=== PATIENT | male | born 1960 | race African-American/Black ===

== ENCOUNTER 2018-11-03 11:27 | Inpatient (IN) | payer OTHER ==
[2018-11-03 11:38] VITALS: BMI 21.7
--- NOTE | 2018-11-03 13:03 | HP ---
CIWA Score Nausea/Vomitin Muscle Tremors: 2 Anxiety: 2 Agitation: 2 Paroxysmal Sweats: 1-Minimal Palms Moist Orientation: 0-Oriented Tacttile Disturbances: 1-Very Mild Itch/Numbness Auditory Disturbances: 1-Very Mild Visual Disturbances: 0-None Headache: 2-Mild CIWA-Ar Total Score: 13 - Admission Criteria [facility] Guidelines: Admission for Medically Managed Detox: Requires at least one of the followin. CIWA greater than 12 2. Seizures within the past 24 hours 3. Delirium tremens within the past 24 hours 4. Hallucinations within the past 24 hours 5. Acute intervention needed for co occurring medical disorder 6. Acute intervention needed for co occurring psychiatric disorder 7. Severe withdrawal that cannot be handled at a lower level of care (continued vomiting, continued diarrhea, abnormal vital signs) requiring intravenous medication and/or fluids 8. Patient presents the following: CIWA greater than 12 Admission Criteria Met: Admission criteria met Admission ROS BHS - HPI Chief Complaint: i need help to stop drinking alcohol and cocaine Allergies/Adverse Reactions: Allergies Allergy/AdvReac Type Severity Reaction Status Date / Time Penicillins Allergy Mild Hives Verified 11/03/18 12:12 tomato Allergy Unknown Hives Verified 11/03/18 12:12 chocolate Allergy Severe Rash Uncoded 11/03/18 12:12 History of Present Illness: this 58 years old male with alcohol and cocaine dependence,seeking detox, withdrawal symptom,last detox 09/20/16 to 09/26/16,[facility] hiv positive 12/1989 weight loss nicotine dependence multiple admissions in the past but keep relapsing bipolar disorder,anxiety,depression plan to go to rehab after detox multiple admissions for pcp pneumonia - Ebola screening Have you traveled outside of the country in the last 21 days: No Have you been sick,other than usual withdrawal symptoms: No - Review of Systems Constitutional: Loss of Appetite, Malaise, Night Sweats, Changes in sleep, Weakness, Unintentional Wgt. Loss EENT: reports: Nose Congestion Respiratory: reports: No Symptoms reported Cardiac: reports: No Symptoms Reported GI: reports: Nausea, Poor Appetite, Abdominal cramping : reports: No Symptoms Reported Musculoskeletal: reports: Back Pain, Muscle Pain Integumentary: reports: Dryness Neuro: reports: Headache, Tremors Endocrine: reports: No Symptoms Reported Hematology: reports: No Symptoms Reported, Other (hiv) Psychiatric: reports: No Sypmtoms Reported, Judgement Intact, Mood/Affect Appropiate, Orientated x3, other (bipolar disorder) Other Systems: Reviewed and Negative Patient History - Patient Medical History Hx Anemia: Yes (no med) Hx Asthma: No Hx Chronic Obstructive Pulmonary Disease (COPD): No Hx Cancer: No Hx Cardiac Disorders: No Hx Congestive Heart Failure: No Hx Hypertension: No Hx Hypercholesterolemia: Yes (no med) Hx Pacemaker: No HX Cerebrovascular Accident: No Hx Seizures: No Hx Diabetes: No Hx Gastrointestinal Disorders: No Hx Liver Disease: No Hx Genitourinary Disorders: No Hx Sexually Transmitted Disorders: No Hx Renal Disease (ESRD): No Hx Thyroid Disease: No Hx Human Immunodeficiency Virus (HIV): Yes (since 12/1989 non compliance) Hx Hepatitis C: No Hx Depression: Yes Hx Suicide Attempt: No Hx Bipolar Disorder: Yes Hx Schizophrenia: No Other Medical History: no suicidal,no homicidal - Patient Surgical History Past Surgical History: No Hx Neurologic Surgery: No Hx Cataract Extraction: No Hx Cardiac Surgery: No Hx Lung Surgery: No Hx Breast Surgery: No Hx Breast Biopsy: No Hx Abdominal Surgery: No Hx Appendectomy: No Hx Cholecystectomy: No Hx Genitourinary Surgery: No Hx Section: No Hx Orthopedic Surgery: No Anesthesia Reaction: No - PPD History Previous Implant?: Yes Documented Results: Positive w/o proof Implanted On Prior [facility] Admission?: No PPD to be Administered?: No - Smoking Cessation Smoking history: Current every day smoker Have you smoked in the past 12 months: Yes Aproximately how many cigarettes per day: 20 Hx Chewing Tobacco Use: No Initiated information on smoking cessation: Yes 'Breaking Loose' booklet given: 11/03/18 - Substance & Tx. History Hx Alcohol Use: Yes Hx Substance Use: Yes Substance Use Type: Alcohol, Cocaine Hx Substance Use Treatment: Yes ([facility] 09/23/16 to 09/26/16) - Substances Abused Crack Route: Smoking Frequency: Daily Amount used: $200 Age of first use: 33 Date of Last Use: 11/02/18 Alcohol-beer Route: Oral Frequency: Daily Amount used: 2-6 pkls. Age of first use: 22 Date of Last Use: 11/03/18 Family Disease History - Family Disease History Family Disease History: Other: Mother (alcohol,) Admission Physical Exam BHS - Vital Signs Vital Signs: Vital Signs - 24 hr 11/03/18 11:28 Temperature 97.1 F L Pulse Rate 84 Respiratory 20 Rate Blood Pressure 122/70 - Physical General Appearance: Yes: Moderate Distress, Tremorous, Irritable, Sweating, Anxious HEENTM: Yes: Normal ENT Inspection, JUTSICE, Pharynx Normal Respiratory: Yes: Lungs Clear, Normal Breath Sounds, No Respiratory Distress Neck: Yes: Within Normal Limits, Supple, Trachea in good position Breast: Yes: Within Normal Limits Cardiology: Yes: Within Normal Limits, Regular Rhythm, Regular Rate, S1, S2 Abdominal: Yes: Within Normal Limits, Normal Bowel Sounds, Non Tender, Flat, Soft Genitourinary: Yes: Within Normal Limits Back: Yes: Muscle Spasm Musculoskeletal: Yes: full range of Motion, Back pain, Muscle Pain Extremities: Yes: Tremors Neurological: Yes: cell liner II-XII NML intact, Fully Oriented, Alert, Motor Strength 5/5 Integumentary: Yes: Dry Lymphatic: Yes: Within Normal Limits - Diagnostic (1) Alcohol dependence with uncomplicated withdrawal Current Visit: No Status: Acute (2) Acquired immune deficiency syndrome (AIDS) Current Visit: No Status: Active (3) Bipolar disorder Current Visit: No Status: Acute (4) Cocaine dependence Current Visit: No Status: Acute (5) Nicotine dependence Current Visit: No Status: Acute (6) Peripheral neuropathy Current Visit: No Status: Acute Qualifiers: Peripheral neuropathy type: polyneuropathy, other Qualified Code(s): G62.89 - Other specified polyneuropathies (7) Syncope Current Visit: No Status: Acute (8) Weight loss Current Visit: No Status: Acute Cleared for Admission [facility] - Detox or Rehab [facility] Level of Care: Medically Managed Detox Regimen/Protocol: Librium [facility] Breath Alcohol Content Breath Alcohol Content: 0.087 Urine Drug Screen - Results Drug Screen Negative: No Urine Drug Screen Results: JEISON-Cocaine
[2018-11-03] MEDS ORDERED: hydrOXYzine PAMOATE 25 MG CAPSULE (FP) PO PRN (13:12)
[2018-11-03] MEDS ORDERED: ACETAMINOPHEN 325 MG TABLET (FP) PO PRN (13:12)
[2018-11-03] MEDS ORDERED: MAG HYDROX/AL HYDROX/SIMETH 30 ML UNIT-DOSE CUP PO PRN (13:12)
[2018-11-03] MEDS ORDERED: P-EPHED 60MG/TRIPROLIDI 2.5MG TABLET PO PRN (13:12)
[2018-11-03] MEDS ORDERED: MENTHOL/PHENOL 1 EACH UD MM PRN (13:12)
[2018-11-03] MEDS ORDERED: guaiFENesin/D-METHORPHAN HB 10 ML UNIT-DOSE CUPS PO PRN (13:12)
[2018-11-03] MEDS ORDERED: MAGNESIUM CITRATE 300 ML BOTTLE PO PRN (13:12)
[2018-11-03] MEDS ORDERED: MAGNESIUM HYDROX 2400MG/30ML ORAL SUSPENSION 30 ML CUP PO PRN (13:12)
[2018-11-03] MEDS ORDERED: diphenhydrAMINE HCL 25 MG CAPSULE (FP) PO PRN (13:18)
[2018-11-03] MEDS: chlordiazePOXIDE HCL 25 MG CAPSULE PO PRN (14:06)
[2018-11-03] MEDS ORDERED: ZIDOVUDINE 300 MG PO SCH (14:30)
[2018-11-03] MEDS: IBUPROFEN 400 MG TABLET (FP) PO PRN (15:58)
[2018-11-03] MEDS: chlordiazePOXIDE HCL 25 MG CAPSULE PO SCH ×2 (17:21→22:18)
[2018-11-03] MEDS: THIAMINE HCL 100 MG TABLET (FP) PO SCH (22:18)
[2018-11-03] MEDS: AMMONIUM LACTATE 12% LOTION 225 GM BOTTLE TP SCH (22:19)
[2018-11-03] MEDS: ZIDOVUDINE 300 MG PO SCH (22:19)
[2018-11-04] MEDS: chlordiazePOXIDE HCL 25 MG CAPSULE PO SCH ×4 (05:37→22:20)
--- NOTE | 2018-11-04 10:05 | CONSULT ---
[facility] Psychiatric Consult - Data Date of interview: 11/04/18 ([facility]) Admission source: [facility] Identifying data: Patient is approached by typewriter operator automatic, at bedside, for the psychiatric interview. Mr Marin declines. " I don't need to talk to psychiatrists ". Nursing staff is made aware.
[2018-11-04] MEDS: DOLUTEGRAVIR SODIUM 50 MG TABLET (NON-FORMULARY) PO SCH (10:31)
[2018-11-04] MEDS: DARUNAVIR 800 MG/COBICISTAT 150MG TABLET PO SCH (10:31)
[2018-11-04] MEDS: PRENATAL VITAMINS W/ FOLIC ACID TABLET (FP) PO SCH (10:31)
[2018-11-04] MEDS: ZIDOVUDINE 300 MG PO SCH ×2 (10:32→22:23)
[2018-11-04] MEDS: AMMONIUM LACTATE 12% LOTION 225 GM BOTTLE TP SCH ×2 (10:38→22:23)
[2018-11-04 10:46] LABS: HEMATOCRIT 34.3 % (35.4-49); MCH 34.2 pg (25.7-33.7); MCHC 32.2 g/dl (32.0-35.9); MEAN CELL VOLUME 106.3 fl (80-96); MEAN PLT VOLUME 7.4 fl (7.5-11.1); PLATELET COUNT 228 K/MM3 (134-434); RBC 3.23 M/mm3 (4.00-5.60); RDW 14.2 % (11.9-15.9); WHITE BLOOD COUNT 5.4 K/mm3 (4.0-10.0)
[2018-11-04 10:56] LABS: ALBUMIN 3.4 g/dl (3.4-5.0); ALK PHOS 69 U/L (45-117); ANION GAP 6 MMOL/L (8-16); BILIRUBIN,TOTAL 0.2 mg/dL (0.2-1); BLOOD UREA NITROGEN 12 mg/dL (7-18); CALCIUM 8.4 mg/dL (8.5-10.1); CHLORIDE 106 mmol/L (98-107); CO2 27 mmol/L (21-32); GLUCOSE,RANDOM 97 mg/dL (74-106); POTASSIUM 3.9 mmol/L (3.5-5.1); SGOT/AST 31 U/L (15-37); SGPT/ALT 21 U/L (13-61); SODIUM 139 mmol/L (136-145); TOT PROT 8.1 g/dl (6.4-8.2)
[2018-11-04 11:39] LABS: RPR REACTIVE 1:1 (NONREACTIVE)
[2018-11-04 11:40] LABS: TREPONEMA ANTIBODY PREVIOUSLY REACTIVE (NONREACTIVE)
--- NOTE | 2018-11-04 12:28 | PN ---
S CIWA - CIWA Score Nausea/Vomitin Muscle Tremors: 2 Anxiety: 3 Agitation: 0-Normal Activity Paroxysmal Sweats: 3 Orientation: 0-Oriented Tacttile Disturbances: 0-None Auditory Disturbances: 0-None Visual Disturbances: 0-None Headache: 0-None Present CIWA-Ar Total Score: 10 BHS Progress Note (SOAP) Subjective: PATIENT PRESENTS WITH C/O NIGHT SWEATS, FEELING WEAK AND TIRED, INTERRUPTED SLEEP AND ANXIETY. Objective: 11/04/18 12:27 Laboratory Tests 11/04/18 11/04/18 11/04/18 05:50 05:50 05:50 WBC 5.4 RBC 3.23 L Hgb 11.0 L Hct 34.3 L MCV 106.3 H MCH 34.2 H D MCHC 32.2 RDW 14.2 Plt Count 228 MPV 7.4 L Sodium 139 Potassium 3.9 Chloride 106 Carbon Dioxide 27 Anion Gap 6 L BUN 12 Creatinine 1.0 Creat Clearance w eGFR > 60 Random Glucose 97 Calcium 8.4 L Total Bilirubin 0.2 AST 31 ALT 21 Alkaline Phosphatase 69 Total Protein 8.1 Albumin 3.4 RPR Titer Reactive 1:1 H T.pallidum Ab (MHA) Previously reactive Vital Signs Temperature 97.2 F L 11/04/18 09:46 Pulse Rate 66 11/04/18 09:46 Respiratory Rate 18 11/04/18 09:46 Blood Pressure 112/74 11/04/18 09:46 O2 Sat by Pulse Oximetry (%) PE: ALERT AND ORIENTED X 3 PATIENT TIRED, WANTED TO SLEEP EXT FULL ROM, AMB AD ENRIKE ANXIOUS Assessment: 11/04/18 12:28 WITHDRAWAL SX Plan: CONTINUE DETOX ADD ENSURE SUPPLEMENT TO DIET ENCOURAGE ORAL FLUIDS CONTINUE TO MONITOR
[2018-11-04] MEDS: THIAMINE HCL 100 MG TABLET (FP) PO SCH (22:20)
[2018-11-05] MEDS: chlordiazePOXIDE HCL 25 MG CAPSULE PO SCH ×2 (05:52→11:17)
[2018-11-05] MEDS: PRENATAL VITAMINS W/ FOLIC ACID TABLET (FP) PO SCH (11:17)
[2018-11-05] MEDS: DOLUTEGRAVIR SODIUM 50 MG TABLET (NON-FORMULARY) PO SCH (11:18)
[2018-11-05] MEDS: DARUNAVIR 800 MG/COBICISTAT 150MG TABLET PO SCH (11:18)
[2018-11-05] MEDS: ZIDOVUDINE 300 MG PO SCH ×2 (11:19→22:49)
[2018-11-05] MEDS: AMMONIUM LACTATE 12% LOTION 225 GM BOTTLE TP SCH ×2 (11:21→22:49)
[2018-11-05] MEDS: LIDOCAINE 5% TOPICAL PATCH TP SCH (14:16)
--- NOTE | 2018-11-05 16:20 | PN ---
[facility] CIWA - CIWA Score Nausea/Vomitin-No Nausea/No Vomiting Muscle Tremors: None Anxiety: 4-Mod. Anxious/Guarded Agitation: 2 Paroxysmal Sweats: No Perspiration Orientation: 2-Disoriented Date<2 days Tacttile Disturbances: 2-Mild Itch/Numbness/Burn Auditory Disturbances: 0-None Visual Disturbances: 3-Moderate Sensitivity Headache: 0-None Present CIWA-Ar Total Score: 13 S Progress Note (SOAP) Subjective: Body Aches, Fatigue. Objective: PATIENT A & O X 2 (UNCERTAIN ABOUT CURRENT DAY / DATE). PATIENT OBSERVED AMBULATING ON UNIT. IN NO ACUTE DISTRESS. 11/05/18 16:17 Vital Signs Temperature 96.8 F L 11/05/18 14:39 Pulse Rate 77 11/05/18 14:39 Respiratory Rate 18 11/05/18 14:39 Blood Pressure 107/72 11/05/18 14:39 O2 Sat by Pulse Oximetry (%) Laboratory Tests 11/04/18 11/04/18 11/04/18 05:50 05:50 05:50 WBC 5.4 RBC 3.23 L Hgb 11.0 L Hct 34.3 L MCV 106.3 H MCH 34.2 H D MCHC 32.2 RDW 14.2 Plt Count 228 MPV 7.4 L Sodium 139 Potassium 3.9 Chloride 106 Carbon Dioxide 27 Anion Gap 6 L BUN 12 Creatinine 1.0 Creat Clearance w eGFR > 60 Random Glucose 97 Calcium 8.4 L Total Bilirubin 0.2 AST 31 ALT 21 Alkaline Phosphatase 69 Total Protein 8.1 Albumin 3.4 RPR Titer Reactive 1:1 H T.pallidum Ab (MHA) Previously reactive LABS NOTED. RPR REACTIVE 1:1. MHATP NOTED TO BE PREVIOUSLY REACTIVE. 11/05/18 16:26 Assessment: 11/05/18 16:27 WITHDRAWAL SYMPTOMS. Plan: CONTINUE DETOX.
--- NOTE | 2018-11-05 18:14 | PN ---
BHS Progress Note (SOAP) Subjective: c/o (R) side pain and cough. States I think this mattress is causing my back pain. Objective: Lungs CTA. Lenard lung expansion. Cough is quiet and non-productive. No nasal congestion. No post-nasal drip. Throat is w/o lesions or exudate. No increased warmth, erythema (R) flank. Vital Signs 11/05/18 11/05/18 14:39 17:39 Temperature 96.8 F L 98.3 F Pulse Rate 77 Respiratory 18 Rate Blood Pressure 107/72 Assessment: Cough. Withdrawal symptoms. Plan: Continue detox. Encouraged increased fluid intake. Encouraged ambulation. Start guaifenison
[2018-11-05] MEDS: chlordiazePOXIDE 5 MG CAPSULE PO SCH ×2 (18:23→22:49)
[2018-11-05] MEDS: IBUPROFEN 400 MG TABLET (FP) PO PRN (19:43)
[2018-11-05] MEDS: chlordiazePOXIDE HCL 25 MG CAPSULE PO PRN (19:45)
[2018-11-05] MEDS: LIDOCAINE PATCH REMOVAL MC SCH (22:47)
[2018-11-05] MEDS: THIAMINE HCL 100 MG TABLET (FP) PO SCH (22:48)
[2018-11-05] MEDS: MELATONIN 5 MG TABLETS PO PRN (22:49)
[2018-11-05] MEDS: guaiFENesin 200 MG/10 ML 10 ML UNIT-DOSE CUPS PO PRN (22:52)
[2018-11-06] MEDS: chlordiazePOXIDE 5 MG CAPSULE PO SCH ×2 (05:24→11:03)
[2018-11-06] MEDS: IBUPROFEN 400 MG TABLET (FP) PO PRN (06:18)
[2018-11-06] MEDS: LOPERAMIDE HCL 2 MG CAPSULE PO PRN ×2 (06:19→21:41)
[2018-11-06] MEDS ORDERED: COLLOIDAL OATMEAL 1 BAR EACH TP PRN (07:08)
[2018-11-06] MEDS: GABAPENTIN 300 MG CAPSULE (FP) PO SCH ×3 (07:33→22:11)
[2018-11-06] MEDS: PRENATAL VITAMINS W/ FOLIC ACID TABLET (FP) PO SCH (11:03)
[2018-11-06] MEDS: DARUNAVIR 800 MG/COBICISTAT 150MG TABLET PO SCH (11:04)
[2018-11-06] MEDS: DOLUTEGRAVIR SODIUM 50 MG TABLET (NON-FORMULARY) PO SCH (11:04)
[2018-11-06] MEDS: ZIDOVUDINE 300 MG PO SCH ×2 (11:04→22:11)
[2018-11-06] MEDS: AMMONIUM LACTATE 12% LOTION 225 GM BOTTLE TP SCH ×2 (11:06→22:08)
[2018-11-06] MEDS: guaiFENesin 200 MG/10 ML 10 ML UNIT-DOSE CUPS PO PRN ×2 (11:32→16:25)
[2018-11-06] MEDS: LIDOCAINE 5% TOPICAL PATCH TP SCH (12:27)
[2018-11-06] MEDS: NICOTINE 21 MG/24 HOURS TOPICAL PATCH TD SCH (14:38)
--- NOTE | 2018-11-06 15:05 | PN ---
BHS Progress Note (SOAP) Subjective: Pain in legs, diarrhea, interrupted sleep Objective: 11/06/18 15:03 Last Vital Signs Temp Pulse Resp BP Pulse Ox 96.0 F L 75 18 99/60 11/06/18 13:27 11/06/18 13:27 11/06/18 13:27 11/06/18 13:27 Laboratory Tests 11/04/18 11/04/18 11/04/18 05:50 05:50 05:50 WBC 5.4 RBC 3.23 L Hgb 11.0 L Hct 34.3 L MCV 106.3 H MCH 34.2 H D MCHC 32.2 RDW 14.2 Plt Count 228 MPV 7.4 L Sodium 139 Potassium 3.9 Chloride 106 Carbon Dioxide 27 Anion Gap 6 L BUN 12 Creatinine 1.0 Creat Clearance w eGFR > 60 Random Glucose 97 Calcium 8.4 L Total Bilirubin 0.2 AST 31 ALT 21 Alkaline Phosphatase 69 Total Protein 8.1 Albumin 3.4 RPR Titer Reactive 1:1 H T.pallidum Ab (A) Previously reactive Labs reviewed Assessment: 11/06/18 15:03 Withdrawal symptoms Plan: Continue detox Encouraged PO water intake
[2018-11-06] MEDS: chlordiazePOXIDE HCL 10 MG CAPSULE PO SCH ×2 (16:29→22:11)
[2018-11-06] MEDS: LIDOCAINE PATCH REMOVAL MC SCH (22:08)
[2018-11-06] MEDS: THIAMINE HCL 100 MG TABLET (FP) PO SCH (22:11)
[2018-11-06] MEDS: MELATONIN 5 MG TABLETS PO PRN (22:12)
[2018-11-07] MEDS: GABAPENTIN 300 MG CAPSULE (FP) PO SCH (05:04)
[2018-11-07] MEDS: chlordiazePOXIDE HCL 10 MG CAPSULE PO SCH ×2 (05:05→10:08)
[2018-11-07 09:27] VITALS: BP 113/70; PULSE 82; TEMP 96.9
[2018-11-07] MEDS: NICOTINE 21 MG/24 HOURS TOPICAL PATCH TD SCH (10:05)
[2018-11-07] MEDS: DARUNAVIR 800 MG/COBICISTAT 150MG TABLET PO SCH (10:06)
[2018-11-07] MEDS: PRENATAL VITAMINS W/ FOLIC ACID TABLET (FP) PO SCH (10:06)
[2018-11-07] MEDS: DOLUTEGRAVIR SODIUM 50 MG TABLET (NON-FORMULARY) PO SCH (10:07)
[2018-11-07] MEDS: ZIDOVUDINE 300 MG PO SCH (10:08)
[2018-11-07] MEDS: LIDOCAINE 5% TOPICAL PATCH TP SCH (10:12)
[2018-11-07] MEDS: AMMONIUM LACTATE 12% LOTION 225 GM BOTTLE TP SCH (10:12)
--- NOTE | 2018-11-07 15:35 | DS ---
[facility] Detox Discharge Summary Admission Date: 11/03/18 Discharge Date: 11/07/18 - History Present History: Alcohol Dependence Additional Comments: 58 years old male admitted on 11/03/18 for alcohol withdrawal stabilization completed detox regimen tolerated alert no acute distress after[facility] Pertinent Past History: encourage the patient return for [facility] admission patient agrees to follow up with infectious disease provider for medical mental and addiction issues - Physical Exam Results Vital Signs: Vital Signs Temperature 96.9 F L 11/07/18 09:26 Pulse Rate 82 11/07/18 09:26 Respiratory Rate 18 11/07/18 09:26 Blood Pressure 113/70 11/07/18 09:26 O2 Sat by Pulse Oximetry (%) Pertinent Admission Physical Exam Findings: alcohol withdrawal sx Vital Signs Temperature 96.9 F L 11/07/18 09:26 Pulse Rate 82 11/07/18 09:26 Respiratory Rate 18 11/07/18 09:26 Blood Pressure 113/70 11/07/18 09:26 O2 Sat by Pulse Oximetry (%) Laboratory Last Values WBC 5.4 K/mm3 (4.0-10.0) 11/04/18 05:50 RBC 3.23 M/mm3 (4.00-5.60) L 11/04/18 05:50 Hgb 11.0 GM/dL (11.7-16.9) L 11/04/18 05:50 Hct 34.3 % (35.4-49) L 11/04/18 05:50 MCV 106.3 fl (80-96) H 11/04/18 05:50 MCH 34.2 pg (25.7-33.7) H D 11/04/18 05:50 MCHC 32.2 g/dl (32.0-35.9) 11/04/18 05:50 RDW 14.2 % (11.9-15.9) 11/04/18 05:50 Plt Count 228 K/MM3 (134-434) 11/04/18 05:50 MPV 7.4 fl (7.5-11.1) L 11/04/18 05:50 Sodium 139 mmol/L (136-145) 11/04/18 05:50 Potassium 3.9 mmol/L (3.5-5.1) 11/04/18 05:50 Chloride 106 mmol/L (98-107) 11/04/18 05:50 Carbon Dioxide 27 mmol/L (21-32) 11/04/18 05:50 Anion Gap 6 MMOL/L (8-16) L 11/04/18 05:50 BUN 12 mg/dL (7-18) 11/04/18 05:50 Creatinine 1.0 mg/dL (0.55-1.3) 11/04/18 05:50 Creat Clearance w eGFR > 60 (>60) 11/04/18 05:50 Random Glucose 97 mg/dL (74-106) 11/04/18 05:50 Calcium 8.4 mg/dL (8.5-10.1) L 11/04/18 05:50 Total Bilirubin 0.2 mg/dL (0.2-1) 11/04/18 05:50 AST 31 U/L (15-37) 11/04/18 05:50 ALT 21 U/L (13-61) 11/04/18 05:50 Alkaline Phosphatase 69 U/L (45-117) 11/04/18 05:50 Total Protein 8.1 g/dl (6.4-8.2) 11/04/18 05:50 Albumin 3.4 g/dl (3.4-5.0) 11/04/18 05:50 RPR Titer Reactive 1:1 (NONREACTIVE) H 11/04/18 05:50 T.pallidum Ab (MHA) Previously reactive (NONREACTIVE) 11/04/18 05:50 lab noted history of syphilis treated - Treatment Hospital Course: Detox Protocol Followed, Detoxed Safely, Responded well, Discharged Condition Good, Rehab Referral Accepted Patient has Accepted a Rehab Referral to: [facility] - Medication Discharge Medications: Ambulatory Orders traZODone HCL [Desyrel -] 100 mg PO HS #30 tablet 09/21/16 Darunavir/Cobicistat [Prezcobix 800 mg-150 mg Tablet] 1 each PO DAILY 11/03/18 Dolutegravir Sodium [Tivicay] 50 mg PO DAILY 11/03/18 Gabapentin [Neurontin] 600 mg PO TID 11/03/18 Loperamide HCl [Imodium -] 2 mg PO QID PRN 11/03/18 Quetiapine Fumarate [Seroquel] 100 tab PO HS 11/03/18 Zidovudine [Retrovir -] 300 mg PO Q12H 11/03/18 - Diagnosis (1) Syphilis contact, treated Status: Chronic (2) Acquired immune deficiency syndrome (AIDS) Status: Chronic (3) Alcohol dependence with uncomplicated withdrawal Status: Acute (4) Weight loss Status: Acute (5) Positive PPD, treated Status: Resolved (6) Nicotine dependence Status: Acute Qualifiers: Nicotine product type: cigarettes Substance use status: in withdrawal Qualified Code(s): F17.213 - Nicotine dependence, cigarettes, with withdrawal - AMA Did Patient Leave Against Medical Advice: No
== END 2018-11-07 11:23 | disposition home or self-care (01) | DRG 774 ==
LOC: YASAS 11:27 → Y3N 13:28
PROC: HZ2ZZZZ Detoxification Services for Substance Abuse Treatment (ICD-10-PCS; principal; 2018-11-03)
DX: F10.230 Alcohol dependence with withdrawal, uncomplicated (principal); F14.20 Cocaine dependence, uncomplicated; F17.210 Nicotine dependence, cigarettes, uncomplicated; F31.9 Bipolar disorder, unspecified; B20 Human immunodeficiency virus [HIV] disease; R76.11 Nonspecific reaction to tuberculin skin test without active tuberculosis; G62.89 Other specified polyneuropathies; R05 Cough; D64.9 Anemia, unspecified; Z86.19 Personal history of other infectious and parasitic diseases; Z88.0 Allergy status to penicillin; Z91.14 Patient's other noncompliance with medication regimen
CPT/HCPCS: 36415; 71045-TC-FY; 80053; 85027; 86593; 86780